=== PATIENT | female | born 1990 | race Caucasian/White ===

== ENCOUNTER 2016-10-17 20:47 | Emergency (ER) | payer OTHER ==
--- NOTE | 2016-10-18 00:34 | ED CARDIAC/CP/PALPITATIONS ---
History of Present Illness General Chief Complaint: General Adult Stated Complaint: HEART PAIN Source: patient Exam Limitations: no limitations Vital Signs & Intake/Output Vital Signs & Intake/Output Vital Signs Date Time Temp Pulse Resp B/P B/P Pulse O2 O2 Flow FiO2 Mean Ox Delivery Rate 10/18 0233 96.3 89 20 130/75 97 Room Air Allergies Coded Allergies: No Known Allergies (10/18/16) Triage Nurses Notes Reviewed? yes Onset: Abrupt Duration: hour(s): Location: central Radiation: no radiation Activities at Onset: none Prior Chest Pain/Card Workup: no prior chest pain Modifying Factors: Improves With: rest. HPI: 26 yo woman in prior good health presents after a 1 hour episode of a rapid heart rate, associated with numbness and tingling of both hands. Her symptoms self resolved. She notes that it did not feel like a panic attack. "I felt it coming on and then maybe I felt a little panicky." She notes no fever, chills, nausea, cough, dyspnea. She is otherwise well. Past History Medical History Any Pertinent Medical History? see below for history Surgical History Surgical History: none Family History Hx Contributory? No Review of Systems Review of Systems Constitutional: Reports: no symptoms. EENTM: Reports: no symptoms. Respiratory: Reports: no symptoms. Cardiovascular: Reports: no symptoms. GI: Reports: no symptoms. Genitourinary: Reports: no symptoms. Musculoskeletal: Reports: no symptoms. Skin: Reports: no symptoms. Neurological/Psychological: Reports: no symptoms. Hematologic/Endocrine: Reports: no symptoms. Immunologic/Allergic: Reports: no symptoms. All Other Systems: Reviewed and Negative Physical Exam Physical Exam General Appearance: well developed/nourished, no apparent distress Head: atraumatic, normal appearance Eyes: Bilateral: normal appearance. Ears, Nose, Throat: normal pharynx, normal ENT inspection, hearing grossly normal Neck: normal inspection, supple, full range of motion Respiratory: normal breath sounds, chest non-tender, no respiratory distress, quiet respiration, lungs clear Cardiovascular: regular rate/rhythm Gastrointestinal: normal bowel sounds, soft, non-tender, no organomegaly Back: normal inspection Extremities: normal inspection, normal capillary refill, normal range of motion, no edema Neurologic/Psych: no motor/sensory deficits, awake, alert, oriented x 3 Skin: intact, normal color, warm/dry Core Measures ACS in differential dx? No Severe Sepsis Present: No Septic Shock Present: No Progress Differential Diagnosis: pe costochondritis vs panic attack vs other. Plan of Care: Orders Procedure Date/time Status URINE 10/17 2344 Active URINALYSIS 10/17 2344 Active TROPONIN LEVEL 10/17 2329 Complete HUMAN BETA HCG SCREEN 10/17 2329 Complete D-DIMER 10/17 2329 Complete COMPREHENSIVE METABOLIC PANEL 10/17 2329 Complete CBC WITHOUT DIFFERENTIAL 10/17 2329 Complete Laboratory Tests 10/17/162344: Urine Color Pending, Urine Clarity Pending, Urine pH Pending, Ur Specific [place] Pending, Urine Protein Pending, Urine Ketones Pending, Urine Nitrite Pending, Urine Bilirubin Pending, Urine Urobilinogen Pending, Ur Leukocyte Esterase Pending, Ur Microscopic Pending, Urine Hemoglobin Pending, Urine Glucose Pending, Urine Test Pending 10/17/162329: Anion Gap 12, Estimated GFR > 60, BUN/Creatinine Ratio 21.4, Glucose 81, Calcium 10.0, Total Bilirubin 0.9, AST 53 H, ALT 35, Alkaline Phosphatase 43, Troponin I 0.02, Total Protein 7.3, Albumin 4.5, Globulin 2.8, Albumin/Globulin Ratio 1.6 , Total Beta HCG NEGATIVE, D-Dimer < 200, CBC w Diff MAN DIFF ORDERED, RBC 3.98 L, MCV 95.9, MCH 32.5 H, RDW 12.0, MPV 8.8, Gran % 63.2, Lymphocytes % 30.1, Monocytes % 4.4, Eosinophils % 2.1, Basophils % 0.2, Absolute Granulocytes 6.3, Segmented Neutrophils 58, Band Neutrophils 1, Absolute Lymphocytes 3.0, Lymphocytes 35, Monocytes 4, Absolute Monocytes 0.4, Absolute Eosinophils 0.2, Basophils 2, Absolute Basophils 0.0, Platelet Estimate , Normocytic RBCs VERIFIED, Normochromic RBCs VERIFIED, PUBS MCHC 33.9 Diagnostic Imaging: Viewed by Me: Radiology Read. Discussed w/RAD: Radiology Read. CXR Impression: no acute abnormality, no infiltrates, normal size heart, normal mediastinum Initial ED EKG: normal axis, normal intervals, normal p-waves, normal QRS complex, normal sinus rhythm Departure Departure Disposition: HOME OR SELF CARE Condition: Stable Clinical Impression Primary Impression: Palpitations Secondary Impressions: Chest pain Referrals: UNKNOWN (PCP/Family) Departure Forms: Customer Survey General Discharge Information Comments 10/18/16, 3am... pt feels better after supportive medications... pt with reproducible symptoms. no risk factors. trop/dimer/ekg benign. pt referred to cardiology follow up. encouraged return if her symptoms recur. Critical Care Note Critical Care Note Critical Care Time: non-applicable
[2016-10-18 02:25] LABS: RED BLOOD CELL CT 3.98 /CUMM (4.20-5.40); WHITE BLOOD CELL COUNT 9.9 /CUMM (4.8-10.8)
[2016-10-18 02:26] LABS: ABSOLUTE EOSINOPHIL COUNT 0.2 /CUMM (0.0-0.7); ABSOLUTE GRANULOCYTE CT 6.3 /CUMM (1.4-6.5); ABSOLUTE MONOCYTE COUNT 0.4 /CUMM (0.10-0.60); BASOPHIL % 0.2 % (0.0-2.0); EOSINOPHIL % 2.1 % (0-5); GRANULOCYTE % 63.2 % (42.2-75.2); HEMATOCRIT 38.2 % (37-47); MEAN CORPUSCULAR HGB 32.5 PG (27.0-31.0); MEAN CORPUSCULAR HGB CONC 33.9 G/DL (33.0-37.0); MEAN CORPUSCULAR VOLUME 95.9 FL (81.0-99.0); MEAN PLATELET VOLUME 8.8 FL (7.4-10.4); PLATELET COUNT 156 /CUMM (130-400)
[2016-10-18 02:33] VITALS: BP 130/75
--- NOTE | 2016-10-20 23:18 | RADIOLOGY REPORT ---
Patient name: Caroline Lan : 1990 EXAMINATION: XR CHEST CLINICAL INFORMATION: Chest pain and shortness of breath. Rapid heartbeat. COMPARISON: None TECHNIQUE: 2 views of the chest were obtained. FINDINGS: The lungs are well expanded. There is no focal consolidation, edema, or effusion. No pneumothorax. The cardiomediastinal silhouette is within normal limits. No acute osseous abnormality. IMPRESSION: No acute pulmonary findings.
== END 2016-10-18 03:35 ==
LOC: ERH 20:47
PROVIDERS: Pediatrics
DX: R00.2 Palpitations (principal); R07.9 Chest pain, unspecified
CPT/HCPCS: 81001; 81025; 96372; J1885